=== PATIENT | male | born 1945 | race Caucasian/White ===

== ENCOUNTER 2023-05-07 18:39 | Emergency (ER) | payer MEDICARE, OTHER, SELFPAY ==
[2023-05-07 18:51] VITALS: BP 176/97; PULSE 77; RESP 18; TEMP 37; O2SAT 96
--- NOTE | 2023-05-07 21:15 | CTR_ITS ---
PROCEDURE INFORMATION: Exam: CT Head Without Contrast Exam date and time: 05/07/2023 10:13 PM Age: 77 years old Clinical indication: Injury or trauma; Fall; Other: Bleeding from back of head; Injury details: Patient fell while in the shower TECHNIQUE: Imaging protocol: Computed tomography of the head without contrast. Radiation optimization: All CT scans at this facility use at least one of these dose optimization techniques: automated exposure control; mA and/or kV adjustment per patient size (includes targeted exams where dose is matched to clinical indication); or iterative reconstruction. COMPARISON: No relevant prior studies available. RADIATION DOSE METRICS: Total DLP (mGy-cm): 1102.41 FINDINGS: Brain: No acute intracranial hemorrhage. No mass effect or midline shift. Basal cisterns are patent. Normal awad-white matter differentiation. Cerebral ventricles: No ventriculomegaly. Paranasal sinuses: Visualized sinuses are unremarkable. Mastoid air cells: Visualized mastoid air cells are clear. Bones/joints: No acute calvarial fracture. Soft tissues: Posterior scalp laceration with mild soft tissue swelling. CT/CT head wo con* [id number] IMPRESSION: No acute intracranial findings.
--- NOTE | 2023-05-07 22:05 | CTR_ITS ---
PROCEDURE INFORMATION: Exam: CT Cervical Spine Without Contrast Exam date and time: 05/07/2023 10:16 PM Age: 77 years old Clinical indication: Injury or trauma; Fall; Other: Unknown; Additional info: Trauma/fall TECHNIQUE: Imaging protocol: Computed tomography of the cervical spine without contrast. Radiation optimization: All CT scans at this facility use at least one of these dose optimization techniques: automated exposure control; mA and/or kV adjustment per patient size (includes targeted exams where dose is matched to clinical indication); or iterative reconstruction. COMPARISON: CT head wo con* [id number] 05/07/2023 10:13 PM RADIATION DOSE METRICS: Total DLP (mGy-cm): 221.17 FINDINGS: Bones/joints: No acute fracture or malalignment. No severe spinal canal stenosis. No severe neural foraminal narrowing. Lungs: Visualized lung apices are clear. Vasculature: Carotid atherosclerotic calcifications. Soft tissues: Unremarkable. CT/CT cervical spin wo con* [id number] IMPRESSION: No acute osseous abnormality of the cervical spine.
[2023-05-07 22:31] VITALS: BP 176/97; PULSE 75; RESP 16; O2SAT 98
--- NOTE | 2023-05-07 22:55 | W.ED.HEATRA ---
HPI - Head Injury General: Chief complaint: Head Injury Stated complaint: Head Injury Time Seen by Provider: 05/07/23 22:05 History of Present Illness: 77-year-old male presents to the emergency department stating that he slipped and fell in the shower this evening. He states he did hit the back of his head and has a laceration to the occipital region of his head. He does not take any anticoagulation but his significant other is concerned that there was a brief period of confusion although no confirmed loss of consciousness. He denies neck pain. He denies nausea or vomiting. He does states he has a 4 out of 10 throbbing headache but mostly because of the area he hit. Review of Systems General: Reports: 10 or more systems reviewed and unremarkable except in HPI and below Card: Denies: chest pain Resp: Denies: dyspnea Skin/Breast: Reports: other (Occipital laceration) Neuro: Reports: headache(s) Physical Exam Narrative: EXAM NARRATIVE: Constitutional: the patient appears well nourished and with normal development. Vital signs reviewed as documented. HENMT: 4 cm horizontal occipital laceration with occipital hematoma. External ears normal appearance without drainage. Nose without drainage, normal appearance. Mucus membranes moist. Neck is supple, No jugular venous distension, trachea is midline, no appreciable carotid bruits. No lymphadenopathy. No meningeal signs. Flexion, extension and lateral rotation is without pain. No palpable step-offs, nontender to palpation, no crepitus, normal alignment Eyes: Pupils are equal, round, reactive to light and accommodation. No scleral icterus. Extra-ocular movement are intact. Thorax is symmetrical and with equal rise and fall with respirations. Resp: Lungs are clear to auscultation. No wheezes, rales, crackles or ronchi at present. Cardio: Regular rate and rhythm. Positive S1, S2. No appreciable murmurs, rubs or gallops. GI: Abdominal exam reveals normal bowel sounds to all quadrants. No organomegaly. No obvious palpable masses noted. No hepatomegally appreciated. Soft, non-tender to palpation. Extremity: Extremities are non-edematous and both femoral and pedal pulses are 2+ and equal bilaterally. Moves all extremities well, sensation in all extremities. Neuro: Alert and oriented x4, person, place, time and situation. Cranial nerves II through XII are grossly intact, there is no focal neurological deficits that I can appreciate at present. Sensation intact to all extremities. 2-point discrimination intact. Light touch intact to all extremities. Motor strength in the upper and lower extremities are equal and bilateral 5/5. Psych: Cooperative, calm, normal thought process, appropriate judgment. Skin: No lesions, rashes. Occipital laceration as noted Back: Symmetrical, no obvious deformity, normal alignment, no crepitus, nontender to palpation, no palpable step-offs noted. Course ED course: Laceration Repair: The patient verbally consents to a wound repair. A time out was performed. Side and sight are verified. Patient identification is verified. The wound is anesthetized with- 5ml of 1% Lidoaine with epinephrine It is then copiously irrigated with sterile saline and cleansed with saline and betadine mixture. The wound measures [-*4* cm-] in length by [-*0.25 mm-] in depth. It is approximated using surgical queta Total number 8. Good approximation is achieved. Hemostasis is maintained. It is dressed with antibiotic ointment and a bulky dressing. Follow-up instructions were provided to the patient. The patient was educated on the signs of infection and return precautions. The patient was advised to follow-up with a medical provider in 10-14 days to have the wound evaluated for possible suture removal. Vital Signs: Vital signs: Vital Signs Temperature 98.6 F 05/07/23 18:51 Pulse Rate 75 05/07/23 22:31 Respiratory Rate 16 05/07/23 22:31 Blood Pressure 176/97 05/07/23 22:31 Pulse Oximetry 98 05/07/23 22:31 Oxygen Delivery Me thod Room Air 05/07/23 22:31 MDM - Head Injury Medcial Decision Making Physical exam completed and documented laceration repair as noted, CT scan of the head and cervical spine are essentially negative with the exception of the occipital scalp hematoma. I will discharge the patient home with recommended follow-up for wound evaluation and staple removal in the next 10 to 14 days. Medical Records I reviewed the patient's medical records. Lab Data Radiology Impressions Head CT 05/07/23 21:15 IMPRESSION: No acute intracranial findings. Cervical Spine CT 05/07/23 22:05 IMPRESSION: No acute osseous abnormality of the cervical spine. All radiology interpretation(s) finalized by discharge Discharge Plan Discharge Patient Disposition: Home Clinical Impression: Laceration of occipital region of scalp, Hematoma of occipital region of scalp, Accidental fall Condition: Stable Discharge Orders: Discharge ED (Routine); Ordered 05/07/23 Ordered By: Vadim Huston Discharge Diet: Usual diet Discharge Activity: Resume usual activity Patient Instructions: Opioid Safety, Pain Management Activity Restrictions/Additional Instructions: Activity Restrictions/Additional Instructions: Thank you for choosing [facility] for your healthcare needs today. Please realize that you were seen in the Emergency Department and that we are providing you with an emergency medical screening exam and this may not be a complete and all inclusive of all the testing and or medical work-up that you may need to determine your ailment or severity of your illness. It is very important that you follow-up as instructed with your Primary care provider or Specialist for additional evaluation and to discuss your medical treatment plan. You may return to the Emergency Department should you have concerns or if your condition changes or worsens in any way. Follow-up within 10 to 14 days to have your wound evaluated for possible surgical staple removal. Coding Level of Care Code ED [employer] for Jody Maynard
[2023-05-07 23:35] VITALS: BP 154/92; PULSE 65; RESP 18; O2SAT 96
== END 2023-05-07 23:36 | disposition home or self-care (01) ==
PROVIDERS: Emergency Provider Internal Medicine
DX: S01.01XA Laceration without foreign body of scalp, initial encounter (principal); S00.03XA Contusion of scalp, initial encounter; W18.2XXA Fall in (into) shower or empty bathtub, initial encounter
CPT/HCPCS: 12002; 70450; 72125; 99284

== ENCOUNTER 2023-06-15 06:40 | Outpatient (CLI) | payer MEDICARE, OTHER, SELFPAY ==
--- NOTE | 2023-06-15 06:56 | CT_ITS ---
WS: [id number] CT HEAD NONCONTRAST HISTORY: INTRACRANIAL INJURY WITH LOC TECHNIQUE: Contiguous axial imaging performed through the brain in 2.5 mm imaging. Bone and soft tiss ue windows. Sagittal and coronal reformats reviewed. All CT scans at [facility] use at least one of these dose optimization techniques: automated exposure control; mA and/or kV adjustment per pa tient size (includes targeted exams where dose is matched to clinical indication); or iterative recon struction. DLP: 1096.59 mGy.cm COMPARISON: 05/07/2023 No acute intracranial hemorrhage, midline shift or mass effect. Mild atrophy and mild small vessel ischemic disease. No acute edema or hemorrhage. Ventricles: Normal size with no hydrocephalus. Mild vascular calcification in the distal vertebral and intracranial carotid arteries. Paranasal sinuses: As visualized are clear. Mastoid air cells: Well pneumatized. Calvarium and scalp: Skull is intact with no soft tissue edema or swelling. CT/CT head wo con* [id number] IMPRESSION: 1. No acute intracranial hemorrhage or edema. 2. Mild atrophy and small vessel ischemic disease. 3. No fracture.
== END 2023-06-15 06:41 | disposition home or self-care (01) ==
LOC: RAD 06:40
PROVIDERS: Visit Provider Electrodiagnostic Medicine
DX: S06.9X9D Unspecified intracranial injury with loss of consciousness of unspecified duration, subsequent encounter (principal); G31.9 Degenerative disease of nervous system, unspecified; X58.XXXD Exposure to other specified factors, subsequent encounter
CPT/HCPCS: 70450

== ENCOUNTER → 2023-08-05 14:06 | Outpatient (BNVA) | payer MEDICARE, OTHER, SELFPAY | PROVIDERS: PCP Electrodiagnostic Medicine; Visit Provider Nurse Practitioner Family | DX: L57.0 Actinic keratosis (principal); L73.8 Other specified follicular disorders; L81.4 Other melanin hyperpigmentation; D22.5 Melanocytic nevi of trunk; L82.1 Other seborrheic keratosis | CPT/HCPCS: 17000; 99203 ==

== ENCOUNTER → 2024-08-04 08:05 | Outpatient (BNVA) | payer MEDICARE, OTHER, SELFPAY | PROVIDERS: PCP Electrodiagnostic Medicine; Visit Provider Nurse Practitioner Family | DX: L81.4 Other melanin hyperpigmentation (principal); D22.5 Melanocytic nevi of trunk; L82.1 Other seborrheic keratosis; L57.8 Other skin changes due to chronic exposure to nonionizing radiation; X32.XXXA Exposure to sunlight, initial encounter; L73.8 Other specified follicular disorders; L57.0 Actinic keratosis | CPT/HCPCS: 17000; 99213 ==

== ENCOUNTER → 2024-08-30 07:35 | Outpatient (BNVA) | payer MEDICARE, OTHER, SELFPAY | PROVIDERS: PCP Electrodiagnostic Medicine; Visit Provider Podiatrist Foot & Ankle Surgery | DX: M79.671 Pain in right foot (principal); M79.672 Pain in left foot; Q66.72 Congenital pes cavus, left foot; Q66.71 Congenital pes cavus, right foot; M77.41 Metatarsalgia, right foot; M77.42 Metatarsalgia, left foot | CPT/HCPCS: 73630; 99204 ==

== ENCOUNTER → 2024-10-24 07:26 | Outpatient (BNVA) | payer MEDICARE, OTHER, SELFPAY | PROVIDERS: PCP Electrodiagnostic Medicine; Visit Provider Podiatrist Foot & Ankle Surgery | DX: Q66.72 Congenital pes cavus, left foot (principal); Q66.71 Congenital pes cavus, right foot | CPT/HCPCS: 99213 ==

== ENCOUNTER 2024-10-24 10:21 | Outpatient (CLI) | payer MEDICARE, OTHER, SELFPAY | END 2024-10-24 10:22 | disposition home or self-care (01) | LOC: SPT 10:22 | PROVIDERS: PCP Electrodiagnostic Medicine; Visit Provider Podiatrist Foot & Ankle Surgery | DX: Z46.89 Encounter for fitting and adjustment of other specified devices (principal); Q66.71 Congenital pes cavus, right foot; Q66.72 Congenital pes cavus, left foot | CPT/HCPCS: L3030 ==